=== PATIENT | female | born 1995 | race Hispanic/Latino ===

== ENCOUNTER 2024-10-23 17:41 | Emergency (ER) | payer BC ==
[~2024-10-23] VITALS: Ht 160 cm; Wt 77.3 kg
[2024-10-23 19:16] VITALS: PULSE 69; RESP 16; TEMP 98.2; O2SAT 99
== END 2024-10-23 19:16 | disposition home or self-care (01) ==
LOC: FSED 18:09
DX: R06.02 Shortness of breath (principal); R53.1 Weakness; R42 Dizziness and giddiness; R51.9 Headache, unspecified; M79.10 Myalgia, unspecified site
CPT/HCPCS: 80048; 80076; 85025; 99283